=== PATIENT | female | born 1980 | race Caucasian/White ===

== ENCOUNTER 2019-09-16 08:27 | Day surgery (SDC) | payer OTHER ==
[2019-09-13 11:22] VITALS: BMI 33.6
[2019-09-16] MEDS ORDERED: BUPIVACAINE HCL/PF 0.5% (5MG/ML) 10 ML VIAL ONE (10:22)
[2019-09-16] MEDS ORDERED: ceFAZolin SODIUM 1 GM VIAL ONE (10:27)
[2019-09-16] MEDS ORDERED: KETOROLAC TROMETHAMINE 30 MG/1 ML VIAL ONE (10:27)
[2019-09-16] MEDS ORDERED: SODIUM CHLORIDE 0.9% P/F 10 ML VIAL IJ ONE (10:27)
[2019-09-16] MEDS ORDERED: ONDANSETRON 4 MG/2 ML VIAL ONE (10:27)
[2019-09-16] MEDS ORDERED: DEXAMETHASONE SOD PHOSPHATE 4 MG/1 ML VIAL ONE (10:27)
[2019-09-16] MEDS ORDERED: MIDAZOLAM HCL 2 MG/2 ML SINGLE DOSE VIAL ONE (10:27)
[2019-09-16] MEDS ORDERED: MORPHINE SULFATE 10 MG/1 ML *VIAL ONE (10:31)
[2019-09-16] MEDS ORDERED: ONDANSETRON 4 MG/2 ML VIAL IVPUSH PRN (10:44)
[2019-09-16] MEDS ORDERED: oxyCODONE HCL 5 MG TABLET PO PRN ×2 (10:44)
[2019-09-16] MEDS ORDERED: LACTATED RINGERS SOLUTION 1,000 ML IV SCH (10:45)
[2019-09-16] MEDS ORDERED: PROPOFOL 20 ML ONE ×2 (11:05)
[2019-09-16] MEDS ORDERED: BUPIVACAINE HCL/PF 0.5% (5 MG/ML) 30 ML VIAL IJ ONE (11:20)
[2019-09-16] MEDS ORDERED: BUPIVACAINE HCL/PF 0.5% (5MG/ML) 10 ML VIAL IJ ONE (11:35)
[2019-09-16] MEDS ORDERED: oxyCODONE HCL 5 MG TABLET ONE (12:54)
[2019-09-16 13:08] VITALS: TEMP 98
--- NOTE | 2019-09-16 14:00 | OP ---
DATE OF OPERATION: 09/16/2019 PREOPERATIVE DIAGNOSIS: Torn medial meniscus to the right knee and chondromalacia. POSTOPERATIVE DIAGNOSES: 1. Torn medial and lateral meniscus to the right knee. 2. 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 3. Extensive joint debris to the right knee. 4. 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 5. 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 PROCEDURES PERFORMED: 1. Arthroscopy of the right knee with partial medial and lateral meniscectomy. 2. Extensive synovectomy to the right knee. 3. Extensive joint debridement, right knee. 4. Chondroplasty to the patella to the right knee. 5. Stem cell recruitment using microdrilling for osteochondritis dissecans lesion to the right knee lateral femoral condyle. 6. Plastic surgical technique for closure of right knee portals. SURGEON: Patrick Montana MD AIR SEALING TECHNICIAN: SHERYL Solorio ANESTHESIA: Leticia Nolasco MD TYPE OF ANESTHESIA: General anesthesia. DESCRIPTION OF PROCEDURE: The procedure consisted of the patient being brought into the operating room and gently transferred from the stretcher to the OR table with all bony prominences well padded. The right leg was prepared and draped in a sterile fashion. The patient was given intravenous antibiotics and copious irrigation throughout the procedure to minimize risk of infection. A complete risk, benefit, alternative discussion was conducted with the patient, which was inclusive of, but not limited to, infection, bleeding, , paralysis, increased pain, need for repeat surgery. Patient asked questions, understood the procedure, and desired to proceed with surgical treatment. Following sterile preparation and draping of the right leg, an appropriate time-out was conducted, which was inclusive of, but not limited to, type of surgery, site of surgery, anesthesiologist, and surgeon. The right leg had been prepared and draped in a sterile fashion, and following sterile preparation and draping of the right leg, the leg was exsanguinated using a rubber Esmarch bandage, and the tourniquet had been inflated to 350 mmHg. Suprapatellar medial and lateral joint line portals were used to introduce the arthroscope and arthroscopic instruments. The knee was examined. There was noted to be extensive hypertrophic synovium in the suprapatellar pouch, and extensive partial synovectomy was performed. Medial and lateral gutters were without plica or loose body. Inferior surface of the patella had damage consistent with chondromalacia, and a chondroplasty was performed. Medial joint was examined. There was noted to be a tear of the posterior horn of the medial meniscus, and this was resected using a shaver and radiofrequency wand. Femoral condyles were intact. Intercondylar region was noted to have extensive joint debris, and extensive joint debridement was performed. Cruciate ligaments were found to be intact. Lateral meniscus was also found to have a tear of the posterior horn, and this was resected using a shaver and radiofrequency wand. There was noted to be a 1-1/2-cm diameter osteochondritis dissecans lesion on the lateral femoral condyle. This was debrided using shaver and radiofrequency wand, and a microdrilling pattern was used to create a pattern of perforations through the cortex to allow stem cell recruitment to fill the defect. This was performed as well. The knee was then copiously irrigated with sterile saline irrigant, and the wounds were closed with 4-0 undyed Vicryl followed by Steri-Strips, Xeroform, 4 x 4's, combine, sterile Webril, and sterile ANISHA bandages, and a knee immobilizer. James Clements was critical for assisting during surgery, holding the arthroscope I used the drill and arthroscopic instruments. He provided critical support and safety in surgical treatment. The patient was then gently awoken from anesthesia without incident. The tourniquet had been deflated after approximately 25 minutes of tourniquet time. There were no intraoperative complications. PATRICK MONTANA M.D. [id number] [facility]
[2019-09-16 15:05] VITALS: BP 110/67; PULSE 77
== END 2019-09-16 15:06 | disposition home or self-care (01) ==
LOC: FASU 08:27
PROVIDERS: ATTEND Orthopaedic Surgery
PROC: 0SBC4ZZ Excision of Right Knee Joint, Percutaneous Endoscopic Approach (ICD-10-PCS; 2019-09-16)
PROC: 0SBC4ZZ Excision of Right Knee Joint, Percutaneous Endoscopic Approach (ICD-10-PCS; 2019-09-16)
PROC: 0SBC4ZZ Excision of Right Knee Joint, Percutaneous Endoscopic Approach (ICD-10-PCS; principal; 2019-09-16 11:00)
DX: S83.241A Other tear of medial meniscus, current injury, right knee, initial encounter (principal); S83.281A Other tear of lateral meniscus, current injury, right knee, initial encounter; M67.261 Synovial hypertrophy, not elsewhere classified, right lower leg; M22.41 Chondromalacia patellae, right knee; M93.261 Osteochondritis dissecans, right knee
CPT/HCPCS: 84703; 94760